=== PATIENT | female | born 1950 | race Caucasian/White ===

== ENCOUNTER 2019-04-12 11:02 | Emergency (ER) | payer MEDICARE, SELFPAY ==
[2019-04-12 11:03] VITALS: BP 188/94; PULSE 103; RESP 15; TEMP 36.6; O2SAT 94; BMI 39.2
--- NOTE | 2019-04-12 11:16 | EKG12_ITS ---
Test Reason : DIZZINESS Blood Pressure : / mmHG Vent. Rate : 100 BPM Atrial Rate : 100 BPM P-R Int : 154 ms QRS Dur : 084 ms QT Int : 342 ms P-R-T Axes : 055 -26 046 degrees QTc Int : 441 ms Normal sinus rhythm Possible Left atrial enlargement Septal infarct , age undetermined Abnormal ECG Confirmed by ANAHI SINGLETARY, JOCY ([id number]), editor city NICOLE BARNETT ([id number]) on 04/14/2019 1:19:30 PM Referred By: Confirmed By:REJI CHRISTIAN MD
--- NOTE | 2019-04-12 11:47 | CT_ITS ---
STUDY: CT BRAIN WITHOUT CONTRAST REASON FOR EXAM: Female, 68 years old. Intermittent dizziness. RADIATION DOSAGE (If Supplied By Facility): CTDIvol = ( 44.99 ) mGy, DLP = ( 779.24 ) mGycm TECHNIQUE: Transaxial CT imaging of the brain was performed without administration of intravenous contrast material. Individualized dose optimization techniques were used for this CT. COMPARISON: No relevant priors. FINDINGS: Normal soft tissue structures. There is hyperostosis frontalis internus. There is mild cerebral atrophy with widening of the extra-axial spaces and ventricular dilatation. Normal white matter tracts of the cerebral hemispheres. Normal basal ganglia and thalami. Normal brainstem. Normal cerebellum. There is no intracranial hemorrhage. There are no findings of an acute ischemic infarction. Atherosclerotic calcification of the cavernous portions of the internal carotid arteries bilaterally. Normal visualized paranasal sinuses. CT/Brain/Head without Contrast IMPRESSION: Chronic involutional changes of the brain. Electronically Signed: Silvinao Carter, at 12:30 EST , Service support ,
[2019-04-12 11:55] LABS: Absolute Lymphocyte Count 1.33 X10^3/uL (0.83-4.51); Absolute Neutrophil Count 5.7 X10^3/uL (2.0-7.7); Basophil# 0.03 X10^3/uL; Basophil% 0.4 % (0-1); Eosinophils% 1.3 % (0-5); Hematocrit 44.8 % (37-47); Hemoglobin 14.1 g/dL (12.0-15.0); Lymphocyte # 1.33 X10^3/ul (4.0); Lymphocyte % 17.6 % (19-41); Mean Corp Hgb Conc 31.5 g/dL (32-36); Mean Corpuscular Hgb 28.7 pg (27.0-32.0); Mean Corpuscular Volume 91.2 fL (81-99); Mean Platelet Vol. 10.8 fl (6.2-12.0); Monocyte# 0.41 X10^3/uL; Monocyte% 5.4 % (0-10); NRBC Flagged by Analyzer 0 % (0-5); Neutrophil # 5.66 X10^3/uL (2.7-7.7); Neutrophil % 74.9 % (47-70); Platelet Count 235 K/mm3 (150-450); RBC Distribution Width CV 13.2 % (11.6-14.6); RBC Distribution Width SD 43.7 fl (35.1-43.9); Red Blood Count 4.91 M/mm3 (4.2-5.4); White Blood Count 7.6 K/mm3 (4.4-11.0)
[2019-04-12 12:05] LABS: Anion Gap 9 (5-15); BUN 16 mg/dL (7-18); Calcium,Total 8.9 mg/dL (8.5-10.1); Chloride 101 mmol/L (98-107); Creatinine, Serum 0.67 mg/dL (0.55-1.02); EST Glomerular Filtration Rate 94 mL/min (>60); Est Glom Filt Rate - Afr Amer 113 mL/min (>60); Estimated Creatinine Clearance 47.14 ml/min; Glucose 109 mg/dL (74-106); Potassium 3.8 mmol/L (3.5-5.1); Sodium Level 138 mmol/L (136-145)
[2019-04-12 13:02] VITALS: BP 153/76; PULSE 94; RESP 17; O2SAT 93
--- NOTE | 2019-04-12 13:25 | RAD_ITS ---
STUDY: X-RAY CHEST REASON FOR EXAM: Female, 68 years old. Dyspnea/shortness of breath. Dizziness. TECHNIQUE: Single AP portable view of the chest. COMPARISON: None. FINDINGS: Calcified granulomas. There is no demonstrated pleural abnormality. Normal size heart. Normal mediastinum and conner. There is prominence of the pulmonary hilar arteries without peripheral pulmonary vascular congestion, suggesting pulmonary hypertension. Normal visualized aortic arch and descending thoracic aorta. There are diffuse degenerative changes of the visualized thoracic spine. Mild dextroscoliosis. Normal visualized ribs, clavicles, and shoulders. There is no demonstrated abnormality of the visualized soft tissue structures of the upper abdomen. RAD/Chest 1 View (Portable) IMPRESSION: Calcified granulomas. Enlargement of the central pulmonary arteries. Electronically Signed: Silviano Carter, at 13:52 EST , Service support ,
--- NOTE | 2019-04-12 14:38 | ED.VISSUMM ---
- ER Visit Summary Date of Service: 04/12/19 Chief Complaint: Dizziness History of Present Illness: The patient is a 68 F of hypertension and vertigo. Patient states she is a dizziness feeling off balance and Wednesday. Says she felt lightheaded on Wednesday. Notes worse today. It comes and goes. It is not made worse with movement of her head. She said she did have some ringing in her ears. Denies any headache or head trauma. She has had prior vertigo but that was room spinning worse with head movements. She denies any trouble moving her arms or legs. She denies any visual change or changes in her speech. No leg weakness nor numbness. Physical Examination: Older female no acute distress. All signs are stable and afebrile. Initial blood pressure 188/94. HEENT exam unremarkable. No facial droop. Normal speech. Pupils round reactive light extra motions are intact. Neck nontender. Lungs clear to auscultation. Heart regular rhythm rate about 100 no murmur. Abdomen soft nontender normal bowel sounds no peritoneal signs. Remedies moves all 4. Neurovascularly intact. Normal range of motion. Normal furniture packer strength. Dorsi plantarflexion intact. Calves are nontender without edema or cords. Neurologic exam normal NIH is 0. She is awake and alert. Again no facial droop. Normal speech. Normal furniture packer strength. Normal fingertip to nose and [id number]. Nurses even get the patient up and ambulate her and she did well. Test Results: Chest x-ray no acute abnormality portable one view read both myself and radiologist. Normal cardiac silhouette. CT brain shows chronic changes no acute process. CBC normal. Chemistries normal. EKG sinus rhythm rate of 100 with no acute signs of TX or ischemia. Emergency Department Course and Treatment: Repeat exam is unchanged at both 1322 and 1437. Discussed with the patient at length. She really wants to try Antivert I explained her that that is fine but I do not find any signs of this being vertigo. I also spoke to her primary care physician who she has appointment with next week. Treatment Plan: Antivert as needed per patient request. See her primary care physician was scheduled appointment next week. Return if worse. Disposition: Discharge Impression: Subjective dizziness of uncertain etiology This note was generated with [employer] software. It may contain incorrect words, spelling, and punctuation that were not noted in review of the chart prior to signing ED Disposition - Plan for ED Patient: Referrals: Dutch Sibley [Primary Care Provider] -
--- NOTE | 2019-04-12 14:44 | ED.DEP ---
ED Disposition - Plan for ED Patient: Disposition: Home or Assisted Living Instructions: DIZZINESS, Unk Cause Prescriptions: Meclizine HCl [Antivert] 25 mg PO 4X/DAY PRN PRN #14 tab PRN Reason: room spinning dizziness Prescription Printed Referrals: Dutch Sibley [Primary Care Provider] - Keep Alayna appointment Additional Instructions: Follow-up with your doctor next week. Return if feeling worse. Your CAT scan, x-ray and labs today were unremarkable. Your exam is unremarkable. Antivert as needed however your symptoms today and exam are not consistent with vertigo.
[2019-04-12 14:59] VITALS: BP 160/96; PULSE 100; RESP 17
== END 2019-04-12 14:59 | disposition home or self-care (01) ==
PROVIDERS: Emergency Provider Emergency Medicine; Family Provider Family Medicine; PCP Family Medicine
DX: R42 Dizziness and giddiness (principal); I10 Essential (primary) hypertension; Z72.0 Tobacco use
CPT/HCPCS: 70450; 71045; 80048; 85025; 93005; 99284; A4216